=== PATIENT | female | born 1945 | race Caucasian/White ===

== ENCOUNTER → 2018-06-30 | Outpatient (CLI) | payer OTHER ==
[2018-06-30 17:12] LABS: AMORPHOUS SEDIMENT MODERATE (NEGATIVE); APPEARANCE, URINE HAZY (CLEAR); BACTERIA, URINE AUTO NEGATIVE (NEGATIVE); BILIRUBIN, URINE AUTO NEGATIVE (NEGATIVE); BLOOD, URINE BLOOD NEGATIVE (NEGATIVE); COLOR, URINE YELLOW (YELLOW); GLUCOSE, URINE (UA) AUTO NEGATIVE (NEGATIVE); HEMATOCRIT 35.6 % (36.0-47.0); HEMOGLOBIN 11.2 g/dl (12.0-15.5); KETONE, URINE AUTO NEGATIVE (NEGATIVE); LEUKOCYTE ESTERASE, URINE AUTO NEGATIVE (NEGATIVE); MEAN CORPUSCULAR HGB CONC 31.5 g/dl (32.0-36.5); NITRITE, URINE AUTO NEGATIVE (NEGATIVE); PLATELET COUNT, AUTOMATED 280 10^3/uL (150-450); PROTEIN, URINE AUTO 2+ mg/dL (NEGATIVE); RBC, URINE AUTO 3 /HPF (0-3); RED CELL DISTRIBUTION WIDTH 13.8 % (11.5-14.5); SPECIFIC GRAVITY URINE AUTO 1.013 (1.002-1.035); SQUAMOUS EPITHELIAL CELL UR AU 1 /HPF (0-6); UROBILINOGEN, URINE AUTO 0.2 mg/dL (0.0-2.0); WBC, URINE AUTO 1 /HPF (0-3); WHITE BLOOD COUNT 11.9 10^3/uL (4.0-10.0)
[2018-06-30 17:22] LABS: ANION GAP 6 MEQ/L (8-16); BLOOD UREA NITROGEN 31 MG/DL (7-18); CARBON DIOXIDE LEVEL 32 MEQ/L (21-32); CHLORIDE LEVEL 102 MEQ/L (98-107); CREATININE FOR GFR 1.11 MG/DL (0.55-1.30); GLOMERULAR FILTRATION RATE 51.3 (>39); GLUCOSE, FASTING 108 MG/DL (70-100); POTASSIUM SERUM 4.7 MEQ/L (3.5-5.1); SODIUM LEVEL 140 MEQ/L (136-145)
[2018-06-30 17:29] LABS: INR 0.95; PROTHROMBIN TIME 12.8 SECONDS (12.1-14.4)
[2018-06-30 17:30] LABS: PARTIAL THROMBOPLASTIN TIME 27.7 SECONDS (25.4-37.6)
== END ==
LOC: M SMT 14:59
DX: Z01.818 Encounter for other preprocedural examination (principal); D49.511 Neoplasm of unspecified behavior of right kidney; Z79.01 Long term (current) use of anticoagulants; Z79.899 Other long term (current) drug therapy; E11.9 Type 2 diabetes mellitus without complications
CPT/HCPCS: 80048

== ENCOUNTER 2018-07-18 06:58 | Inpatient (IN) | payer OTHER ==
[2018-07-18] MEDS: LIDOCAINE 1% SDV 5 ML VIAL SQ (07:00)
[2018-07-18] MEDS: LR 1,000 ML IV ×2 (07:55→13:15)
[2018-07-18 07:58] LABS: BEDSIDE GLUCOSE 155 MG/DL (83-110)
[2018-07-18] MEDS ORDERED: ROCURONIUM BROMIDE 50 MG/5 ML VIAL As Ordered ×3 (08:21→11:14)
[2018-07-18] MEDS ORDERED: PROPOFOL 200 MG/20 ML VIAL As Ordered (08:21)
[2018-07-18] MEDS ORDERED: MIDAZOLAM INJ 2 MG/2 ML VIAL (J2250) As Ordered (08:21)
[2018-07-18] MEDS ORDERED: fentaNYL 250 MCG/5 ML INJECTION (J3010) As Ordered (08:21)
[2018-07-18] MEDS ORDERED: LIDOCAINE 2% INJ 100 MG/5 ML SDV (FOR ANES.) As Ordered (08:21)
[2018-07-18] MEDS ORDERED: SEVOFLURANE INHAL SOLN 250 ML BTL As Ordered (08:58)
[2018-07-18] MEDS ORDERED: ePHEDrine SULFATE 25 MG/5 ML(5MG/ML) SYRINGE As Ordered (09:16)
[2018-07-18] MEDS ORDERED: PHENYLephrine HCL 500 MCG/5 ML (100MCG/ML) SYRINGE (J2370) As Ordered (09:16)
[2018-07-18] MEDS ORDERED: HYDROmorphone HCL 2 MG/ML 1ML VIAL (J1170) As Ordered (10:13)
[2018-07-18] MEDS ORDERED: ONDANSETRON 4MG/2ML VIAL (J2405) As Ordered (10:15)
[2018-07-18] MEDS ORDERED: dexameTHASONE 4 MG/ML 1ML VIAL (J1100) As Ordered (10:15)
[2018-07-18] MEDS ORDERED: LABETALOL HCL 100 MG/20 ML VIAL As Ordered (11:44)
[2018-07-18] MEDS ORDERED: SUGAMMADEX SODIUM 500 MG/5 ML VIAL (BRIDION) As Ordered (11:48)
[2018-07-18 12:58] LABS: BEDSIDE GLUCOSE 252 MG/DL (83-110)
[2018-07-18 13:09] LABS: HEMATOCRIT 34.4 % (36.0-47.0); HEMOGLOBIN 11.2 g/dl (12.0-15.5); MEAN CORPUSCULAR HEMOGLOBIN 28.5 pg (27.0-33.0); MEAN CORPUSCULAR HGB CONC 32.6 g/dl (32.0-36.5); MEAN CORPUSCULAR VOLUME 87.5 fl (80.0-96.0); PLATELET COUNT, AUTOMATED 234 10^3/uL (150-450); RED BLOOD COUNT 3.93 10^6/uL (4.00-5.40); WHITE BLOOD COUNT 11.2 10^3/uL (4.0-10.0)
[2018-07-18] MEDS ORDERED: MEPERIDINE INJ 25 MG/ML VIAL (J2175) IV (13:15)
[2018-07-18] MEDS ORDERED: ONDANSETRON 4MG/2ML VIAL (J2405) IV ×2 (13:15→13:30)
[2018-07-18] MEDS ORDERED: METOCLOPRAMIDE INJ 10MG/2ML VIAL (J2765) IV (13:15)
[2018-07-18] MEDS ORDERED: HumaLOG INSULIN (NovoLOG) PER UNIT As Ordered (13:22)
[2018-07-18] MEDS: HumaLOG INSULIN (NovoLOG) PER UNIT SC ×3 (13:24→20:55)
[2018-07-18] MEDS ORDERED: MORPHINE 4 MG/ML 1ML VIAL/SYRINGE (J2270) IV (13:30)
[2018-07-18 13:31] LABS: ANION GAP 9 MEQ/L (8-16); BLOOD UREA NITROGEN 25 MG/DL (7-18); CARBON DIOXIDE LEVEL 26 MEQ/L (21-32); CHLORIDE LEVEL 105 MEQ/L (98-107); CREATININE FOR GFR 1.31 MG/DL (0.55-1.30); GLOMERULAR FILTRATION RATE 42.4 (>39); GLUCOSE, FASTING 250 MG/DL (70-100); POTASSIUM SERUM 3.8 MEQ/L (3.5-5.1); SODIUM LEVEL 140 MEQ/L (136-145)
[2018-07-18] MEDS: PERCOCET 5MG/325MG TAB PO (13:35)
[2018-07-18] MEDS: fentaNYL 100 MCG/2 ML INJECTION (J3010) IV ×2 (13:40→13:45)
[2018-07-18] MEDS: LevoFLOXacin IV 500 MG in APPROPRIATE DILUENT 1 EA IV (15:06)
[2018-07-18] MEDS: KCL 20MEQ in NS 1000ML 1,000 ML IV (15:06)
[2018-07-18] MEDS: ACETAMINOPHEN 650MG ER TAB (TYLENOL ARTHRITIS) PO ×2 (15:50→21:41)
[2018-07-18] MEDS ORDERED: GLUCOSE 4 GM CHEW TABLET PO (16:45)
[2018-07-18] MEDS ORDERED: DEXTROSE 50% 50 ML SYRINGE IV (16:45)
[2018-07-18] MEDS ORDERED: GLUCAGON FOR INJ 1 MG VIAL (J1610) SC (16:45)
[2018-07-18] MEDS: FIBER-CON 625 MG TAB PO (18:00)
[2018-07-18 18:17] LABS: BEDSIDE GLUCOSE 214 MG/DL (83-110)
[2018-07-18] MEDS: FUROSEMIDE 40 MG TAB PO (18:18)
[2018-07-18 20:04] LABS: BEDSIDE GLUCOSE 249 MG/DL (83-110)
[2018-07-18] MEDS: ATORVASTATIN 20 MG TAB PO (20:55)
[2018-07-18] MEDS: PANTOPRAZOLE 40MG INJ (PROTONIX) (C9113) IV (20:55)
[2018-07-18] MEDS: GABAPENTIN 400 MG CAP PO (20:55)
[2018-07-19] MEDS: KCL 20MEQ in NS 1000ML 1,000 ML IV ×2 (00:42→09:45)
[2018-07-19] MEDS: oxyCODONE 5MG TAB PO ×2 (00:46→09:41)
[2018-07-19] MEDS: LEVOTHYROXINE 75MCG TABLET (0.075MG) PO (06:10)
[2018-07-19] MEDS: ACETAMINOPHEN 650MG ER TAB (TYLENOL ARTHRITIS) PO ×3 (06:10→21:28)
[2018-07-19 06:39] LABS: HEMATOCRIT 29.7 % (36.0-47.0); HEMOGLOBIN 9.4 g/dl (12.0-15.5); MEAN CORPUSCULAR HEMOGLOBIN 27.7 pg (27.0-33.0); MEAN CORPUSCULAR HGB CONC 31.6 g/dl (32.0-36.5); MEAN CORPUSCULAR VOLUME 87.6 fl (80.0-96.0); PLATELET COUNT, AUTOMATED 222 10^3/uL (150-450); RED BLOOD COUNT 3.39 10^6/uL (4.00-5.40); RED CELL DISTRIBUTION WIDTH 14.2 % (11.5-14.5)
[2018-07-19 07:00] LABS: ANION GAP 6 MEQ/L (8-16); BLOOD UREA NITROGEN 21 MG/DL (7-18); CARBON DIOXIDE LEVEL 28 MEQ/L (21-32); CHLORIDE LEVEL 106 MEQ/L (98-107); GLOMERULAR FILTRATION RATE 42.7 (>39); GLUCOSE, FASTING 139 MG/DL (70-100); POTASSIUM SERUM 3.9 MEQ/L (3.5-5.1); SODIUM LEVEL 140 MEQ/L (136-145)
[2018-07-19] MEDS: FLUoxetine 20 MG CAP PO (09:33)
[2018-07-19] MEDS: FIBER-CON 625 MG TAB PO (09:33)
[2018-07-19] MEDS: GABAPENTIN 400 MG CAP PO ×3 (09:33→21:28)
[2018-07-19] MEDS: HumaLOG INSULIN (NovoLOG) PER UNIT SC ×4 (09:33→21:00)
[2018-07-19] MEDS: FUROSEMIDE 40 MG TAB PO ×2 (09:34→17:53)
[2018-07-19] MEDS: LOSARTAN 50 MG TAB PO (09:40)
[2018-07-19 11:26] LABS: BEDSIDE GLUCOSE 221 MG/DL (83-110)
[2018-07-19] MEDS: LevoFLOXacin IV 500 MG in APPROPRIATE DILUENT 1 EA IV (15:07)
[2018-07-19] MEDS: PANTOPRAZOLE 40MG INJ (PROTONIX) (C9113) IV (21:28)
[2018-07-19] MEDS: ATORVASTATIN 20 MG TAB PO (21:28)
[2018-07-20] MEDS: LEVOTHYROXINE 75MCG TABLET (0.075MG) PO (05:59)
[2018-07-20] MEDS: ACETAMINOPHEN 650MG ER TAB (TYLENOL ARTHRITIS) PO ×2 (05:59→13:27)
[2018-07-20 06:40] LABS: ANION GAP 22 MEQ/L (8-16); BLOOD UREA NITROGEN 20 MG/DL (7-18); CARBON DIOXIDE LEVEL 12 MEQ/L (21-32); CHLORIDE LEVEL 110 MEQ/L (98-107); CREATININE FOR GFR 1.65 MG/DL (0.55-1.30); GLOMERULAR FILTRATION RATE 32.5 (>39); GLUCOSE, FASTING 126 MG/DL (70-100); POTASSIUM SERUM 4.5 MEQ/L (3.5-5.1); SODIUM LEVEL 144 MEQ/L (136-145)
[2018-07-20 06:45] LABS: HEMATOCRIT 28.4 % (36.0-47.0); MEAN CORPUSCULAR HGB CONC 31.7 g/dl (32.0-36.5); MEAN CORPUSCULAR VOLUME 88.2 fl (80.0-96.0); PLATELET COUNT, AUTOMATED 194 10^3/uL (150-450); RED BLOOD COUNT 3.22 10^6/uL (4.00-5.40); RED CELL DISTRIBUTION WIDTH 14.3 % (11.5-14.5); WHITE BLOOD COUNT 11.3 10^3/uL (4.0-10.0)
[2018-07-20] MEDS: HumaLOG INSULIN (NovoLOG) PER UNIT SC ×2 (08:55→13:26)
[2018-07-20] MEDS: FIBER-CON 625 MG TAB PO (08:55)
[2018-07-20] MEDS: GABAPENTIN 400 MG CAP PO (08:56)
[2018-07-20] MEDS: FUROSEMIDE 40 MG TAB PO (08:56)
[2018-07-20] MEDS: FLUoxetine 20 MG CAP PO (08:56)
[2018-07-20] MEDS: LOSARTAN 50 MG TAB PO (08:58)
[2018-07-20 09:33] LABS: CREATININE BF 1.6 MG/DL (NOT ESTABLISHED); SOURCE, BODY FLUID CREATININE OTHER
[2018-07-21 14:26] LABS: BEDSIDE GLUCOSE 188 MG/DL (83-110)
[2018-07-21 14:26] LABS: BEDSIDE GLUCOSE 181 MG/DL (83-110)
[2018-07-21 14:26] LABS: BEDSIDE GLUCOSE 214 MG/DL (83-110)
== END 2018-07-20 14:01 | disposition home or self-care (01) | DRG 658 ==
LOC: M OR 06:58 → M MSPAV 14:39
PROVIDERS: Urology
PROC: 0TB04ZZ Excision of Right Kidney, Percutaneous Endoscopic Approach (ICD-10-PCS; principal; 2018-07-18 08:30)
PROC: 8E0W4CZ Robotic Assisted Procedure of Trunk Region, Percutaneous Endoscopic Approach (ICD-10-PCS; 2018-07-18 08:30)
DX: C64.1 Malignant neoplasm of right kidney, except renal pelvis (principal); I11.0 Hypertensive heart disease with heart failure; E11.9 Type 2 diabetes mellitus without complications; I50.9 Heart failure, unspecified; M10.9 Gout, unspecified

== ENCOUNTER 2023-08-15 07:19 | Day surgery (SDC) | payer MEDICARE ==
[~2023-08-15] VITALS: Ht 157.5 cm; Wt 84.4 kg
[~2023-08-15 07:19] MED LIST: ACE65ERTAB PO; ACET650T61 PO; AMLO2.5T3 PO; ANOR1AER PO; ASPI81TA86 PO; ATEN25TA PO; ATOR1TAB21 PO; BEVE1AER INH; DIPH-435 PO; DULO1CAP6 PO; ECOT81TA5 PO; FEBU40TA4 PO; FENO160T10 PO; FIBE500T4 PO; FIBE625T PO; FISH10005 PO; GABA600T4 PO; GABA800T4 PO; INSU100I48; INSU100I6 SC; INSUHUMDS SC; LANS15CA PO; LASI40TA9 PO; LEVA250T13 PO; LEVO75TA4 PO; LEVO88TA3 PO; LOSA100T46 PO; LOSA50TA28 PO; MIRA3350 PO; MM S100C PO; NS 1,000 ML IV ONE; OMEP-173 PO; OXYC7.5T3 PO; POTA-149 PO; POTA-298 PO; PROZ40CA PO; ROSU40TA4 PO; STOOTAB PO; TESS100C PO; TRAM50TA2 PO; TRUL10IN SC; TYLE500T78 PO; VITA-183 PO; [UNRECOGNIZED DRUG - CODE] PO; [UNRECOGNIZED DRUG - CODE] PO; fentaNYL 100 MCG/2 ML INJECTION As Ordered ONE; propofoL 200 MG/20 ML VIAL As Ordered ONE
[2023-08-15] MEDS ORDERED: propofoL 200 MG/20 ML VIAL As Ordered ONE (09:08)
[2023-08-15 09:43] VITALS: BP 120/59; O2SAT 94
== END 2023-08-15 09:48 | disposition home or self-care (01) ==
LOC: M OPP 07:19
PROVIDERS: ATTEND Internal Medicine Gastroenterology
DX: D12.6 Benign neoplasm of colon, unspecified (principal); K64.0 First degree hemorrhoids; K57.30 Diverticulosis of large intestine without perforation or abscess without bleeding; Z80.0 Family history of malignant neoplasm of digestive organs; D50.9 Iron deficiency anemia, unspecified; K31.89 Other diseases of stomach and duodenum; K29.70 Gastritis, unspecified, without bleeding; E11.9 Type 2 diabetes mellitus without complications; G47.30 Sleep apnea, unspecified; Z99.89 Dependence on other enabling machines and devices; I25.10 Atherosclerotic heart disease of native coronary artery without angina pectoris; I25.2 Old myocardial infarction; I50.9 Heart failure, unspecified; I34.9 Nonrheumatic mitral valve disorder, unspecified; Z85.520 Personal history of malignant carcinoid tumor of kidney; Z79.02 Long term (current) use of antithrombotics/antiplatelets; Z79.891 Long term (current) use of opiate analgesic; Z79.899 Other long term (current) drug therapy; Z88.1 Allergy status to other antibiotic agents; Z88.2 Allergy status to sulfonamides; Z88.8 Allergy status to other drugs, medicaments and biological substances; Z91.048 Other nonmedicinal substance allergy status

== ENCOUNTER 2024-03-01 16:09 | Emergency (ER) | payer OTHER, MEDICARE ==
[~2024-03-01] VITALS: Ht 160 cm; Wt 90.0 kg
[~2024-03-01 16:09] MED LIST changes: -NS 1,000 ML IV ONE; -ROSU40TA4 PO; +ROSU40TA63 PO; -fentaNYL 100 MCG/2 ML INJECTION As Ordered ONE; -propofoL 200 MG/20 ML VIAL As Ordered ONE
[2024-03-01 17:27] LABS: BASO # 0.1 10^3/uL (0.0-0.2); BASO % 0.5 % (0.0-1.0); EOS # 0.3 10^3/uL (0.0-0.5); HEMATOCRIT 24.4 % (36.0-47.0); HEMOGLOBIN 7.6 g/dl (12.0-15.5); LYMPH # 2.5 10^3/uL (1.5-5.0); LYMPH % 25.5 % (24.0-44.0); MEAN CORPUSCULAR HEMOGLOBIN 26.7 pg (27.0-33.0); MEAN CORPUSCULAR HGB CONC 31.1 g/dl (32.0-36.5); MEAN CORPUSCULAR VOLUME 85.6 fl (80.0-96.0); MONO # 0.6 10^3/uL (0.0-0.8); MONO % 5.8 % (2.0-8.0); NEUTROPHILS # 6.1 10^3/uL (1.5-8.5); PLATELET COUNT, AUTOMATED 288 10^3/uL (150-450); RED BLOOD COUNT 2.85 10^6/uL (4.00-5.40); WHITE BLOOD COUNT 9.6 10^3/uL (4.0-10.0)
[2024-03-01 17:47] LABS: CALCIUM LEVEL 9.6 MG/DL (8.3-10.6); CREATININE FOR GFR 2.88 MG/DL (0.55-1.30); GLOMERULAR FILTRATION RATE 16.8 (>39)
[2024-03-01] MEDS: NS 1,000 ML IV ONE (21:14)
[2024-03-01] MEDS: HumuLIN R (REGULAR) INSULIN (NovoLIN R) **100U/ML** PER UNIT SC STA (21:14)
[2024-03-01 21:27] LABS: THYROID STIMULATING HORMONE 1.383 uIU/ML (0.55-4.78)
[2024-03-01 23:31] VITALS: BP 157/78
[2024-03-01] MEDS: LOSARTAN 50MG TABLET PO ONE (23:31)
[2024-03-02 00:05] LABS: CALCIUM LEVEL 9.2 MG/DL (8.3-10.6); CREATININE FOR GFR 2.65 MG/DL (0.55-1.30); GLOMERULAR FILTRATION RATE 18.5 (>39); POTASSIUM SERUM 5.2 MMOL/L (3.5-5.1)
[2024-03-02] MEDS: LEVEMIR (INSULIN DETEMIR) 1 UNITS/0.01ML SC ONE (01:31)
[2024-03-02 01:44] VITALS: BP 172/85; TEMP 98.2; O2SAT 98
== END 2024-03-02 01:47 | disposition home or self-care (01) ==
LOC: M ED 16:09
DX: E87.5 Hyperkalemia (principal); D64.9 Anemia, unspecified; K21.9 Gastro-esophageal reflux disease without esophagitis; E11.9 Type 2 diabetes mellitus without complications; I10 Essential (primary) hypertension; E78.5 Hyperlipidemia, unspecified; F32.A Depression, unspecified; Z88.2 Allergy status to sulfonamides; Z88.8 Allergy status to other drugs, medicaments and biological substances; Z91.040 Latex allergy status; Z79.899 Other long term (current) drug therapy; Z79.1 Long term (current) use of non-steroidal anti-inflammatories (NSAID); Z79.4 Long term (current) use of insulin
CPT/HCPCS: 70450; 71045; 80048; 81001; 84443; 85025; 93005; 96372; 99285; J1815

== ENCOUNTER → 2024-03-16 | Outpatient (REF) | payer OTHER, MEDICARE ==
[2024-03-16 19:56] LABS: PERCENT SATURATION 4.3 % (13.2-45.0)
== END ==
LOC: M LAB REF 17:09
PROVIDERS: ATTEND Internal Medicine Nephrology
DX: D50.9 Iron deficiency anemia, unspecified (principal)

== ENCOUNTER 2024-04-04 11:35 | Outpatient (CLI) | payer MEDICARE ==
[~2024-04-04] VITALS: Ht 157.5 cm; Wt 86.3 kg
[2024-04-04] MEDS: NS 1,000 ML IV SCH (06:00)
[~2024-04-04 11:35] MED LIST changes: +ALBUTEROL SULFATE 2.5MG/0.5ML INH NEB SOLN INH PRN; +EPINEPHrine INJ 1 MG/ML 1ML AMP IM PRN; +diphenhydrAMINE 50MG/ML VIAL IV PRN; +methylPREDNISolone 125MG 2ML VIAL IV PRN
[2024-04-04 11:45] VITALS: BP 139/63; O2SAT 97
[2024-04-04] MEDS: IRON SUCROSE 25 MG in NS 23.75 ML IV ONE (12:56)
[2024-04-04] MEDS: IRON SUCROSE 375 MG in NS 250 ML IV ONE (13:48)
[2024-04-04 16:10] VITALS: BP 124/58; O2SAT 92
== END 2024-04-04 16:10 | disposition home or self-care (01) ==
LOC: M INFU 11:35
PROVIDERS: ATTEND Internal Medicine Nephrology
DX: D50.9 Iron deficiency anemia, unspecified (principal); Z88.2 Allergy status to sulfonamides; Z88.1 Allergy status to other antibiotic agents; Z88.8 Allergy status to other drugs, medicaments and biological substances; Z91.040 Latex allergy status
CPT/HCPCS: 96365; 96366; J1756

== ENCOUNTER → 2024-04-11 | Outpatient (CLI) | payer MEDICARE ==
[~2024-04-11] MED LIST changes: -ALBUTEROL SULFATE 2.5MG/0.5ML INH NEB SOLN INH PRN; -EPINEPHrine INJ 1 MG/ML 1ML AMP IM PRN; -diphenhydrAMINE 50MG/ML VIAL IV PRN; -methylPREDNISolone 125MG 2ML VIAL IV PRN
== END ==
LOC: M RAD 13:47
PROVIDERS: ATTEND Internal Medicine Nephrology
DX: N18.32 Chronic kidney disease, stage 3b (principal)

== ENCOUNTER 2024-04-18 11:00 | Outpatient (CLI) | payer MEDICARE ==
[~2024-04-18] VITALS: Ht 157.5 cm; Wt 87.2 kg
[~2024-04-18 11:00] MED LIST changes: +ALBUTEROL SULFATE 2.5MG/0.5ML INH NEB SOLN INH PRN; +EPINEPHrine INJ 1 MG/ML 1ML AMP IM PRN; +NS 1,000 ML IV SCH; +diphenhydrAMINE 50MG/ML VIAL IV PRN; +methylPREDNISolone 125MG 2ML VIAL IV PRN
[2024-04-18 11:10] VITALS: BP 152/82; O2SAT 97
[2024-04-18] MEDS: IRON SUCROSE 400 MG in NS 250 ML OVER 2.5 HRS IV ONE (11:37)
[2024-04-18 12:45] VITALS: BP 149/86; O2SAT 96
[2024-04-18 13:45] VITALS: BP 140/88; O2SAT 97
[2024-04-18 14:15] VITALS: BP 148/80; O2SAT 96
== END 2024-04-18 14:35 ==
LOC: M INFU 11:00
PROVIDERS: ATTEND Internal Medicine Nephrology
DX: D50.9 Iron deficiency anemia, unspecified (principal); Z88.0 Allergy status to penicillin; Z88.2 Allergy status to sulfonamides; Z88.1 Allergy status to other antibiotic agents; Z88.8 Allergy status to other drugs, medicaments and biological substances; Z91.040 Latex allergy status
CPT/HCPCS: 96365; 96366; J1756

== ENCOUNTER → 2024-04-24 | Outpatient (REF) | payer MEDICARE ==
[~2024-04-24] MED LIST changes: -ALBUTEROL SULFATE 2.5MG/0.5ML INH NEB SOLN INH PRN; -EPINEPHrine INJ 1 MG/ML 1ML AMP IM PRN; -NS 1,000 ML IV SCH; -diphenhydrAMINE 50MG/ML VIAL IV PRN; -methylPREDNISolone 125MG 2ML VIAL IV PRN
[2024-04-24 19:22] LABS: PERCENT SATURATION 11.2 % (13.2-45.0)
== END ==
LOC: M LAB REF 17:34
PROVIDERS: ATTEND Internal Medicine Nephrology
DX: D50.9 Iron deficiency anemia, unspecified (principal)

== ENCOUNTER → 2024-06-13 | Outpatient (REF) | payer MEDICARE, OTHER ==
[~2024-06-13] MED LIST changes: +GABA-1490 PO; +GABA-1635 PO; -GABA600T4 PO; -GABA800T4 PO; -ROSU40TA63 PO; +ROSU40TA81 PO
[2024-06-13 12:29] LABS: HEMATOCRIT 30.6 % (36.0-47.0); HEMOGLOBIN 9.6 g/dl (12.0-15.5); MEAN CORPUSCULAR HEMOGLOBIN 26.4 pg (27.0-33.0); MEAN CORPUSCULAR HGB CONC 31.4 g/dl (32.0-36.5); MEAN CORPUSCULAR VOLUME 84.1 fl (80.0-96.0); PLATELET COUNT, AUTOMATED 319 10^3/uL (150-450); RED BLOOD COUNT 3.64 10^6/uL (4.00-5.40); WHITE BLOOD COUNT 9.7 10^3/uL (4.0-10.0)
[2024-06-13 13:04] LABS: CALCIUM LEVEL 10.6 MG/DL (8.3-10.6); CREATININE FOR GFR 2.5 MG/DL (0.55-1.30); GLOMERULAR FILTRATION RATE 19.8 (>39); POTASSIUM SERUM 4.3 MMOL/L (3.5-5.1)
== END ==
LOC: SKLAB4 10:42
PROVIDERS: ATTEND Internal Medicine
DX: N18.4 Chronic kidney disease, stage 4 (severe) (principal)

== ENCOUNTER → 2024-06-28 | Outpatient (REF) | payer MEDICARE, OTHER ==
[2024-06-28 10:30] LABS: URIC ACID 4.8 MG/DL (3.1-7.8)
[2024-06-28 10:34] LABS: CHOLESTEROL LEVEL 230 MG/DL (<200); CHOLESTEROL RISK RATIO 5.89 (<5); PHOSPHORUS LEVEL 4.9 MG/DL (2.4-5.1); TRIGLYCERIDES LEVEL 454 MG/DL (<150)
[2024-06-28 10:35] LABS: TOTAL 25(OH) VITAMIN D 11.4 NG/ML (20.0-100.0)
[2024-06-28 10:54] LABS: HEMOGLOBIN A1c 9.4 % (4.0-6.0)
== END ==
LOC: SKLAB4 07:00
PROVIDERS: ATTEND Internal Medicine
DX: E78.49 Other hyperlipidemia (principal); Z79.899 Other long term (current) drug therapy

== ENCOUNTER → 2024-07-10 | Outpatient (REF) | payer MEDICARE, OTHER ==
[2024-07-10 09:43] LABS: BACTERIA, URINE AUTO 1+ (NEGATIVE); MUCUS, URINE SMALL (NEGATIVE); RBC, URINE AUTO 3 /HPF (0-3); SQUAMOUS EPITHELIAL CELL UR AU 4 /HPF (0-6); WBC, URINE AUTO 6 /HPF (0-3)
[2024-07-10 10:32] LABS: APPEARANCE, URINE HAZY (CLEAR); BILIRUBIN, URINE AUTO NEGATIVE (NEGATIVE); BLOOD, URINE BLOOD NEGATIVE (NEGATIVE); COLOR, URINE YELLOW (YELLOW); GLUCOSE, URINE (UA) AUTO 1+ mg/dL (NEGATIVE); KETONE, URINE AUTO NEGATIVE (NEGATIVE); LEUKOCYTE ESTERASE, URINE AUTO NEGATIVE (NEGATIVE); NITRITE, URINE AUTO NEGATIVE (NEGATIVE); PROTEIN, URINE AUTO 3+ mg/dL (NEGATIVE); SPECIFIC GRAVITY URINE AUTO 1.011 (1.002-1.035); UROBILINOGEN, URINE AUTO 0.2 mg/dL (0.0-2.0)
[2024-07-10 12:11] LABS: HEMATOCRIT 30.7 % (36.0-47.0); HEMOGLOBIN 9.5 g/dl (12.0-15.5); MEAN CORPUSCULAR HEMOGLOBIN 26.5 pg (27.0-33.0); MEAN CORPUSCULAR HGB CONC 30.9 g/dl (32.0-36.5); MEAN CORPUSCULAR VOLUME 85.8 fl (80.0-96.0); PLATELET COUNT, AUTOMATED 354 10^3/uL (150-450); RED BLOOD COUNT 3.58 10^6/uL (4.00-5.40); WHITE BLOOD COUNT 9.1 10^3/uL (4.0-10.0)
[2024-07-10 12:43] LABS: ALBUMIN 3.3 G/DL (3.2-5.2); CALCIUM LEVEL 10.5 MG/DL (8.3-10.6); CREATININE FOR GFR 2.2 MG/DL (0.55-1.30); GLOMERULAR FILTRATION RATE 22.9 (>39); PHOSPHORUS LEVEL 5.3 MG/DL (2.4-5.1); POTASSIUM SERUM 4.7 MMOL/L (3.5-5.1); PTH INTACT 276.6 PG/ML (18.5-88.0)
== END ==
LOC: SKLAB4 08:14
PROVIDERS: ATTEND Internal Medicine
DX: N18.4 Chronic kidney disease, stage 4 (severe) (principal)

== ENCOUNTER → 2024-08-02 | Outpatient (REF) | payer MEDICARE, OTHER ==
[2024-08-02 14:45] LABS: BASO % 0.4 % (0.0-1.0); EOS # 0.2 10^3/uL (0.0-0.5); EOS % 2.5 % (0.0-3.0); HEMATOCRIT 29.4 % (36.0-47.0); HEMOGLOBIN 9.2 g/dl (12.0-15.5); LYMPH # 3.3 10^3/uL (1.5-5.0); MEAN CORPUSCULAR HGB CONC 31.3 g/dl (32.0-36.5); MEAN CORPUSCULAR VOLUME 86.2 fl (80.0-96.0); MONO # 0.6 10^3/uL (0.0-0.8); MONO % 5.7 % (2.0-8.0); NEUTROPHILS # 5.4 10^3/uL (1.5-8.5); NEUTROPHILS % 56.1 % (36.0-66.0); PLATELET COUNT, AUTOMATED 318 10^3/uL (150-450); RED BLOOD COUNT 3.41 10^6/uL (4.00-5.40); WHITE BLOOD COUNT 9.6 10^3/uL (4.0-10.0)
[2024-08-02 15:09] LABS: ALBUMIN 3.1 G/DL (3.2-5.2); BILIRUBIN,TOTAL 0.2 MG/DL (0.3-1.2); CALCIUM LEVEL 9.5 MG/DL (8.3-10.6); CREATININE FOR GFR 2.2 MG/DL (0.55-1.30); GLOMERULAR FILTRATION RATE 22.9 (>39); POTASSIUM SERUM 4.8 MMOL/L (3.5-5.1)
== END ==
LOC: SKLAB4 12:14
PROVIDERS: ATTEND Internal Medicine
DX: R07.9 Chest pain, unspecified (principal); I50.9 Heart failure, unspecified; R30.0 Dysuria; R91.8 Other nonspecific abnormal finding of lung field

== ENCOUNTER → 2024-08-02 | Outpatient (REF) | payer MEDICARE, OTHER | LOC: SKLAB4 11:29 | PROVIDERS: ATTEND Internal Medicine | DX: R42 Dizziness and giddiness (principal); I44.0 Atrioventricular block, first degree ==

== ENCOUNTER → 2024-08-03 | Outpatient (CLI) | payer MEDICARE | LOC: M EKG 13:57 | PROVIDERS: ATTEND Nurse Practitioner Family | DX: R42 Dizziness and giddiness (principal); I44.0 Atrioventricular block, first degree ==

== ENCOUNTER → 2024-08-09 | Outpatient (CLI) | payer MEDICARE | LOC: M CARPUL 13:20 | PROVIDERS: ATTEND Nurse Practitioner Family | DX: E07.9 Disorder of thyroid, unspecified (principal) ==

== ENCOUNTER → 2024-09-20 | Outpatient (CLI) | payer MEDICARE | LOC: M RAD 14:28 | PROVIDERS: ATTEND Nurse Practitioner Family | DX: M25.512 Pain in left shoulder (principal) ==

== ENCOUNTER → 2024-09-20 | Outpatient (REF) | payer MEDICARE ==
[2024-09-20 13:33] LABS: BASO % 0.4 % (0.0-1.0); EOS % 0.4 % (0.0-3.0); HEMATOCRIT 28.6 % (36.0-47.0); HEMOGLOBIN 8.9 g/dl (12.0-15.5); LYMPH # 1.5 10^3/uL (1.5-5.0); LYMPH % 14.8 % (24.0-44.0); MEAN CORPUSCULAR HEMOGLOBIN 26.5 pg (27.0-33.0); MEAN CORPUSCULAR HGB CONC 31.1 g/dl (32.0-36.5); MEAN CORPUSCULAR VOLUME 85.1 fl (80.0-96.0); MONO # 0.2 10^3/uL (0.0-0.8); MONO % 2.4 % (2.0-8.0); NEUTROPHILS # 8.1 10^3/uL (1.5-8.5); PLATELET COUNT, AUTOMATED 287 10^3/uL (150-450); RED BLOOD COUNT 3.36 10^6/uL (4.00-5.40)
[2024-09-20 13:44] LABS: ERYTHROCYTE SEDIMENTATION RATE 54 mm/hr (0-30)
[2024-09-20 14:01] LABS: URIC ACID 5.5 MG/DL (3.1-7.8)
[2024-09-20 14:05] LABS: ALBUMIN 3.3 G/DL (3.2-5.2); BILIRUBIN,TOTAL 0.2 MG/DL (0.3-1.2); C REACTIVE PROTEIN QUANTITATIV 0.74 MG/DL (<1.0); CALCIUM LEVEL 9.6 MG/DL (8.3-10.6); CREATININE FOR GFR 2.2 MG/DL (0.55-1.30); GLOMERULAR FILTRATION RATE 22.9 (>39); POTASSIUM SERUM 5.5 MMOL/L (3.5-5.1); TOTAL PROTEIN 7.1 G/DL (5.7-8.2)
== END ==
LOC: SKLAB4 12:49
PROVIDERS: ATTEND Internal Medicine
DX: N18.4 Chronic kidney disease, stage 4 (severe) (principal); M25.512 Pain in left shoulder

== ENCOUNTER → 2024-09-24 | Outpatient (REF) | payer MEDICARE, MEDICAID ==
[2024-09-24 08:10] LABS: CALCIUM LEVEL 9.4 MG/DL (8.3-10.6); CREATININE FOR GFR 2.07 MG/DL (0.55-1.30); GLOMERULAR FILTRATION RATE 24.6 (>39); POTASSIUM SERUM 4.3 MMOL/L (3.5-5.1)
== END ==
LOC: SKLAB4 07:00
PROVIDERS: ATTEND Internal Medicine
DX: E87.5 Hyperkalemia (principal)

== ENCOUNTER → 2024-10-02 | Outpatient (REF) | payer MEDICARE, MEDICAID ==
[2024-10-02 08:48] LABS: HEMATOCRIT 25.3 % (36.0-47.0); HEMOGLOBIN 7.9 g/dl (12.0-15.5); MEAN CORPUSCULAR HEMOGLOBIN 26.8 pg (27.0-33.0); MEAN CORPUSCULAR HGB CONC 31.2 g/dl (32.0-36.5); MEAN CORPUSCULAR VOLUME 85.8 fl (80.0-96.0); PLATELET COUNT, AUTOMATED 278 10^3/uL (150-450); RED BLOOD COUNT 2.95 10^6/uL (4.00-5.40); WHITE BLOOD COUNT 10.2 10^3/uL (4.0-10.0)
[2024-10-02 09:02] LABS: HEMOGLOBIN A1c 10.8 % (4.0-6.0)
[2024-10-02 09:11] LABS: ALBUMIN 2.9 G/DL (3.2-5.2); BILIRUBIN,TOTAL 0.2 MG/DL (0.3-1.2); CALCIUM LEVEL 9.3 MG/DL (8.3-10.6); CREATININE FOR GFR 2.15 MG/DL (0.55-1.30); GLOMERULAR FILTRATION RATE 23.5 (>39); POTASSIUM SERUM 4.3 MMOL/L (3.5-5.1); TOTAL PROTEIN 6.2 G/DL (5.7-8.2)
== END ==
LOC: SKLAB4 07:00
PROVIDERS: ATTEND Internal Medicine
DX: N18.4 Chronic kidney disease, stage 4 (severe) (principal); Z79.899 Other long term (current) drug therapy

== ENCOUNTER → 2024-10-08 | Outpatient (REF) | payer MEDICARE, MEDICAID ==
[2024-10-08 19:40] LABS: APPEARANCE, URINE HAZY (CLEAR); BACTERIA, URINE AUTO 1+ (NEGATIVE); BILIRUBIN, URINE AUTO NEGATIVE (NEGATIVE); BLOOD, URINE BLOOD 1+ (NEGATIVE); COLOR, URINE YELLOW (YELLOW); GLUCOSE, URINE (UA) AUTO 1+ mg/dL (NEGATIVE); KETONE, URINE AUTO NEGATIVE (NEGATIVE); LEUKOCYTE ESTERASE, URINE AUTO TRACE (NEGATIVE); MUCUS, URINE SMALL (NEGATIVE); NITRITE, URINE AUTO NEGATIVE (NEGATIVE); PROTEIN, URINE AUTO 2+ mg/dL (NEGATIVE); RBC, URINE AUTO 1 /HPF (0-3); SPECIFIC GRAVITY URINE AUTO 1.009 (1.002-1.035); SQUAMOUS EPITHELIAL CELL UR AU 1 /HPF (0-6); UROBILINOGEN, URINE AUTO 0.2 mg/dL (0.0-2.0); WBC, URINE AUTO 2 /HPF (0-3)
== END ==
LOC: SKLAB4 18:03
PROVIDERS: ATTEND Nurse Practitioner Family
DX: N18.9 Chronic kidney disease, unspecified (principal)

== ENCOUNTER → 2024-10-11 | Outpatient (REF) | payer MEDICARE, MEDICAID ==
[2024-10-11 10:10] LABS: ALBUMIN 3.1 G/DL (3.2-5.2); CALCIUM LEVEL 9.4 MG/DL (8.3-10.6); CREATININE FOR GFR 2.08 MG/DL (0.55-1.30); GLOMERULAR FILTRATION RATE 24.5 (>39); PHOSPHORUS LEVEL 4.6 MG/DL (2.4-5.1); POTASSIUM SERUM 4.6 MMOL/L (3.5-5.1); PTH INTACT 259.1 PG/ML (18.5-88.0)
== END ==
LOC: SKLAB4 07:00
PROVIDERS: ATTEND Internal Medicine
DX: N18.4 Chronic kidney disease, stage 4 (severe) (principal)

== ENCOUNTER → 2024-11-08 | Outpatient (REF) | payer MEDICARE, MEDICAID ==
[2024-11-08 11:15] LABS: HEMATOCRIT 31.3 % (36.0-47.0); HEMOGLOBIN 9.6 g/dl (12.0-15.5); MEAN CORPUSCULAR HEMOGLOBIN 26.4 pg (27.0-33.0); MEAN CORPUSCULAR HGB CONC 30.7 g/dl (32.0-36.5); PLATELET COUNT, AUTOMATED 323 10^3/uL (150-450); RED BLOOD COUNT 3.64 10^6/uL (4.00-5.40); WHITE BLOOD COUNT 11.3 10^3/uL (4.0-10.0)
[2024-11-08 11:54] LABS: ALBUMIN 3.4 G/DL (3.2-5.2); CALCIUM LEVEL 9.4 MG/DL (8.3-10.6); CREATININE FOR GFR 2.37 MG/DL (0.55-1.30); PHOSPHORUS LEVEL 4.8 MG/DL (2.4-5.1); POTASSIUM SERUM 4.4 MMOL/L (3.5-5.1)
[2024-11-08 11:55] LABS: PERCENT SATURATION 12.5 % (13.2-45.0)
[2024-11-08 11:56] LABS: PTH INTACT 182.2 PG/ML (18.5-88.0)
== END ==
LOC: SKLAB4 07:00
PROVIDERS: ATTEND Internal Medicine
DX: N18.9 Chronic kidney disease, unspecified (principal)

== ENCOUNTER → 2024-11-09 | Outpatient (REF) ==
[2024-11-10 00:34] LABS: BASO % 0.4 % (0.0-1.0); EOS # 0.2 10^3/uL (0.0-0.5); EOS % 1.9 % (0.0-3.0); HEMATOCRIT 26.9 % (36.0-47.0); HEMOGLOBIN 8.4 g/dl (12.0-15.5); LYMPH # 3.1 10^3/uL (1.5-5.0); LYMPH % 30.8 % (24.0-44.0); MEAN CORPUSCULAR HEMOGLOBIN 26.9 pg (27.0-33.0); MEAN CORPUSCULAR HGB CONC 31.2 g/dl (32.0-36.5); MEAN CORPUSCULAR VOLUME 86.2 fl (80.0-96.0); MONO # 0.6 10^3/uL (0.0-0.8); MONO % 5.5 % (2.0-8.0); NEUTROPHILS # 6.2 10^3/uL (1.5-8.5); NEUTROPHILS % 60.3 % (36.0-66.0); PLATELET COUNT, AUTOMATED 273 10^3/uL (150-450); RED BLOOD COUNT 3.12 10^6/uL (4.00-5.40); WHITE BLOOD COUNT 10.2 10^3/uL (4.0-10.0)
[2024-11-10 00:40] LABS: CALCIUM LEVEL 8.6 MG/DL (8.3-10.6); CREATININE FOR GFR 2.41 MG/DL (0.55-1.30); GLOMERULAR FILTRATION RATE 20.6 (>39); PERCENT SATURATION 7.1 % (13.2-45.0); PTH INTACT 327.4 PG/ML (18.5-88.0)
== END ==
LOC: SKLAB4 14:55
PROVIDERS: ATTEND Nurse Practitioner Family
DX: N18.9 Chronic kidney disease, unspecified (principal); D63.1 Anemia in chronic kidney disease; E21.1 Secondary hyperparathyroidism, not elsewhere classified

== ENCOUNTER → 2024-11-09 | Outpatient (REF) | payer MEDICARE | LOC: SKLAB4 23:25 | PROVIDERS: ATTEND Nurse Practitioner Family | DX: R30.9 Painful micturition, unspecified (principal); D72.829 Elevated white blood cell count, unspecified; D64.9 Anemia, unspecified; Z53.9 Procedure and treatment not carried out, unspecified reason ==

== ENCOUNTER → 2024-11-09 | Outpatient (REF) | payer MEDICARE, MEDICAID ==
[2024-11-09 23:39] LABS: APPEARANCE, URINE CLEAR (CLEAR); BACTERIA, URINE AUTO 1+ (NEGATIVE); BILIRUBIN, URINE AUTO NEGATIVE (NEGATIVE); BLOOD, URINE BLOOD 1+ (NEGATIVE); COLOR, URINE YELLOW (YELLOW); GLUCOSE, URINE (UA) AUTO 1+ mg/dL (NEGATIVE); KETONE, URINE AUTO NEGATIVE (NEGATIVE); LEUKOCYTE ESTERASE, URINE AUTO TRACE (NEGATIVE); NITRITE, URINE AUTO NEGATIVE (NEGATIVE); PROTEIN, URINE AUTO 2+ mg/dL (NEGATIVE); RBC, URINE AUTO 1 /HPF (0-3); SQUAMOUS EPITHELIAL CELL UR AU 1 /HPF (0-6); UROBILINOGEN, URINE AUTO 0.2 mg/dL (0.0-2.0); WBC, URINE AUTO 1 /HPF (0-3)
== END ==
LOC: SKLAB4 13:25
PROVIDERS: ATTEND Internal Medicine
DX: R30.9 Painful micturition, unspecified (principal)

== ENCOUNTER 2024-11-30 10:39 | Outpatient (CLI) | payer MEDICARE, MEDICAID ==
[~2024-11-30] VITALS: Ht 157.5 cm; Wt 91.0 kg
[~2024-11-30 10:39] MED LIST changes: +ALBUTEROL SULFATE 2.5MG/0.5ML INH NEB SOLN INH PRN; +EPINEPHrine INJ 1 MG/ML 1ML AMP IM PRN; +diphenhydrAMINE 50MG/ML VIAL IV PRN; +methylPREDNISolone 125MG 2ML VIAL IV PRN
[2024-11-30 10:45] VITALS: BP 159/83; O2SAT 96
[2024-11-30] MEDS: IRON SUCROSE 400 MG in NS 250 ML OVER 2.5 HRS IV ONE (11:20)
[2024-11-30] MEDS: NS (Normal Saline) 0.9% 1,000 ML IV SCH (11:20)
[2024-11-30 12:30] VITALS: BP 152/90; O2SAT 97
[2024-11-30 14:00] VITALS: BP 135/63; O2SAT 96
== END 2024-11-30 14:00 | disposition home or self-care (01) ==
LOC: M INFU 10:39
PROVIDERS: ATTEND Internal Medicine Nephrology
DX: D50.9 Iron deficiency anemia, unspecified (principal); Z88.2 Allergy status to sulfonamides; Z88.1 Allergy status to other antibiotic agents; Z88.8 Allergy status to other drugs, medicaments and biological substances; Z91.040 Latex allergy status
CPT/HCPCS: 96365; 96366; J1756

== ENCOUNTER → 2024-12-10 | Outpatient (REF) | payer MEDICARE, MEDICAID ==
[~2024-12-10] MED LIST changes: -ALBUTEROL SULFATE 2.5MG/0.5ML INH NEB SOLN INH PRN; -EPINEPHrine INJ 1 MG/ML 1ML AMP IM PRN; -diphenhydrAMINE 50MG/ML VIAL IV PRN; -methylPREDNISolone 125MG 2ML VIAL IV PRN
[2024-12-10 16:24] LABS: APPEARANCE, URINE CLEAR (CLEAR); BACTERIA, URINE AUTO NEGATIVE (NEGATIVE); BILIRUBIN, URINE AUTO NEGATIVE (NEGATIVE); BLOOD, URINE BLOOD NEGATIVE (NEGATIVE); COLOR, URINE STRAW (YELLOW); GLUCOSE, URINE (UA) AUTO NEGATIVE (NEGATIVE); KETONE, URINE AUTO NEGATIVE (NEGATIVE); LEUKOCYTE ESTERASE, URINE AUTO NEGATIVE (NEGATIVE); MUCUS, URINE SMALL (NEGATIVE); NITRITE, URINE AUTO NEGATIVE (NEGATIVE); PROTEIN, URINE AUTO 2+ mg/dL (NEGATIVE); RBC, URINE AUTO 0 /HPF (0-3); SPECIFIC GRAVITY URINE AUTO 1.006 (1.002-1.035); SQUAMOUS EPITHELIAL CELL UR AU 6 /HPF (0-6); UROBILINOGEN, URINE AUTO 0.2 mg/dL (0.0-2.0); WBC, URINE AUTO 1 /HPF (0-3)
== END ==
LOC: SKLAB4 13:43
PROVIDERS: ATTEND Internal Medicine
DX: N18.9 Chronic kidney disease, unspecified (principal)

== ENCOUNTER → 2024-12-11 | Outpatient (REF) | payer MEDICARE, MEDICAID ==
[2024-12-11 10:32] LABS: BASO % 0.3 % (0.0-1.0); EOS # 0.1 10^3/uL (0.0-0.5); EOS % 0.6 % (0.0-3.0); HEMATOCRIT 32.5 % (36.0-47.0); HEMOGLOBIN 10.2 g/dl (12.0-15.5); LYMPH # 4.3 10^3/uL (1.5-5.0); LYMPH % 31.8 % (24.0-44.0); MEAN CORPUSCULAR HEMOGLOBIN 26.7 pg (27.0-33.0); MEAN CORPUSCULAR HGB CONC 31.4 g/dl (32.0-36.5); MEAN CORPUSCULAR VOLUME 85.1 fl (80.0-96.0); MONO # 0.7 10^3/uL (0.0-0.8); NEUTROPHILS # 8.1 10^3/uL (1.5-8.5); NEUTROPHILS % 60.1 % (36.0-66.0); PLATELET COUNT, AUTOMATED 352 10^3/uL (150-450); RED BLOOD COUNT 3.82 10^6/uL (4.00-5.40); WHITE BLOOD COUNT 13.4 10^3/uL (4.0-10.0)
[2024-12-11 10:56] LABS: ALBUMIN 3.2 G/DL (3.2-5.2); CALCIUM LEVEL 9.1 MG/DL (8.3-10.6); CREATININE FOR GFR 1.99 MG/DL (0.55-1.30); GLOMERULAR FILTRATION RATE 25.7 (>39); PERCENT SATURATION 11.1 % (13.2-45.0); PHOSPHORUS LEVEL 3.7 MG/DL (2.4-5.1); POTASSIUM SERUM 3.9 MMOL/L (3.5-5.1)
[2024-12-11 11:39] LABS: HEMOGLOBIN A1c 8.5 % (4.0-6.0)
[2024-12-11 12:35] LABS: PTH INTACT 290.2 PG/ML (18.5-88.0)
== END ==
LOC: SKLAB4 07:00
PROVIDERS: ATTEND Internal Medicine
DX: N18.9 Chronic kidney disease, unspecified (principal); Z79.899 Other long term (current) drug therapy

== ENCOUNTER 2024-12-14 11:07 | Outpatient (CLI) | payer MEDICARE, MEDICAID ==
[~2024-12-14] VITALS: Ht 157.5 cm; Wt 91.0 kg
[~2024-12-14 11:07] MED LIST changes: +ALBUTEROL SULFATE 2.5MG/0.5ML INH NEB SOLN INH PRN; +EPINEPHrine INJ 1 MG/ML 1ML AMP IM PRN; +diphenhydrAMINE 50MG/ML VIAL IV PRN; +methylPREDNISolone 125MG 2ML VIAL IV PRN
[2024-12-14 11:30] VITALS: BP 141/74; O2SAT 95
[2024-12-14] MEDS ORDERED: NS (Normal Saline) 0.9% 1,000 ML IV SCH (11:30)
[2024-12-14] MEDS: NS IV ONE (12:03)
[2024-12-14] MEDS: IRON SUCROSE IV ONE (12:03)
[2024-12-14 13:00] VITALS: BP 139/81; O2SAT 96
[2024-12-14 14:40] VITALS: BP 140/79; O2SAT 97
== END 2024-12-14 14:45 ==
LOC: M INFU 11:07
PROVIDERS: ATTEND Internal Medicine Nephrology
DX: E61.1 Iron deficiency (principal); Z88.2 Allergy status to sulfonamides; Z88.1 Allergy status to other antibiotic agents; Z88.8 Allergy status to other drugs, medicaments and biological substances; Z91.040 Latex allergy status
CPT/HCPCS: 96365; 96366; J1756

== ENCOUNTER → 2025-01-09 | Outpatient (REF) | payer MEDICARE, MEDICAID ==
[~2025-01-09] MED LIST changes: -ALBUTEROL SULFATE 2.5MG/0.5ML INH NEB SOLN INH PRN; -EPINEPHrine INJ 1 MG/ML 1ML AMP IM PRN; -diphenhydrAMINE 50MG/ML VIAL IV PRN; -methylPREDNISolone 125MG 2ML VIAL IV PRN
[2025-01-09 12:57] LABS: BASO % 0.4 % (0.0-1.0); EOS % 0.1 % (0.0-3.0); HEMATOCRIT 35.5 % (36.0-47.0); HEMOGLOBIN 11.3 g/dl (12.0-15.5); LYMPH # 1.5 10^3/uL (1.5-5.0); LYMPH % 19.9 % (24.0-44.0); MEAN CORPUSCULAR HEMOGLOBIN 26.5 pg (27.0-33.0); MEAN CORPUSCULAR HGB CONC 31.8 g/dl (32.0-36.5); MEAN CORPUSCULAR VOLUME 83.3 fl (80.0-96.0); MONO # 0.4 10^3/uL (0.0-0.8); MONO % 4.6 % (2.0-8.0); NEUTROPHILS # 5.7 10^3/uL (1.5-8.5); NEUTROPHILS % 73.1 % (36.0-66.0); PLATELET COUNT, AUTOMATED 274 10^3/uL (150-450); RED BLOOD COUNT 4.26 10^6/uL (4.00-5.40); WHITE BLOOD COUNT 7.8 10^3/uL (4.0-10.0)
[2025-01-09 13:22] LABS: CALCIUM LEVEL 8.8 MG/DL (8.3-10.6); CREATININE FOR GFR 2.35 MG/DL (0.55-1.30); GLOMERULAR FILTRATION RATE 21.2 (>39); POTASSIUM SERUM 3.6 MMOL/L (3.5-5.1)
== END ==
LOC: SKLAB4 11:39
PROVIDERS: ATTEND Internal Medicine
DX: R19.7 Diarrhea, unspecified (principal); N17.9 Acute kidney failure, unspecified

== ENCOUNTER 2025-02-27 10:39 | Outpatient (CLI) | payer MEDICARE, MEDICAID ==
[~2025-02-27] VITALS: Ht 157.5 cm; Wt 88.6 kg
[~2025-02-27 10:39] MED LIST changes: +ALBUTEROL SULFATE 2.5MG/0.5ML INH CONCENTRATE NEB SOLN INH PRN; +EPINEPHrine INJ 1 MG/ML 1ML AMP IM PRN; +diphenhydrAMINE 50MG/ML VIAL IV PRN; +methylPREDNISolone 125MG 2ML VIAL IV PRN
[2025-02-27 11:00] VITALS: BP 146/65; O2SAT 95
[2025-02-27] MEDS: IRON SUCROSE 400 MG in NS 250 ML OVER 2.5 HRS IV ONE (11:42)
[2025-02-27 13:15] VITALS: BP 121/60; O2SAT 96
[2025-02-27 14:20] VITALS: BP 132/63; O2SAT 97
== END 2025-02-27 14:35 | disposition home or self-care (01) ==
LOC: M INFU 10:39
PROVIDERS: ATTEND Internal Medicine Nephrology
DX: D50.9 Iron deficiency anemia, unspecified (principal); Z88.1 Allergy status to other antibiotic agents; Z88.2 Allergy status to sulfonamides; Z88.8 Allergy status to other drugs, medicaments and biological substances; Z91.040 Latex allergy status
CPT/HCPCS: 96365; 96366; J1756

== ENCOUNTER 2025-04-30 08:23 | Outpatient (CLI) | payer MEDICARE, MEDICAID ==
[~2025-04-30] VITALS: Ht 157.5 cm; Wt 86.3 kg
[~2025-04-30 08:23] MED LIST changes: +ALBUTEROL SULFATE 2.5 MG/0.5 ML INH CONCENTRATE NEB SOLN INH PRN; -ALBUTEROL SULFATE 2.5MG/0.5ML INH CONCENTRATE NEB SOLN INH PRN; +NS (Normal Saline) 0.9% 1,000 ML IV SCH; +diphenhydrAMINE 50 MG/ML VIAL IV PRN; -diphenhydrAMINE 50MG/ML VIAL IV PRN; -methylPREDNISolone 125MG 2ML VIAL IV PRN
[2025-04-30 09:14] VITALS: BP 115/60; O2SAT 95
[2025-04-30] MEDS: IRON SUCROSE 400 MG in NS 250 ML OVER 2.5 HRS IV ONE (09:31)
[2025-04-30 13:12] VITALS: BP 122/66; O2SAT 95
== END 2025-04-30 13:13 ==
LOC: M INFU 08:23
PROVIDERS: ATTEND Internal Medicine Nephrology
DX: D50.9 Iron deficiency anemia, unspecified (principal); Z88.1 Allergy status to other antibiotic agents; Z88.2 Allergy status to sulfonamides; Z88.8 Allergy status to other drugs, medicaments and biological substances; Z91.040 Latex allergy status
CPT/HCPCS: 96365; 96366; J1756

== ENCOUNTER → 2025-05-09 | Outpatient (CLI) | payer MEDICARE ==
[~2025-05-09] MED LIST changes: -ACE65ERTAB PO; +ACET-1593 PO; -ALBUTEROL SULFATE 2.5 MG/0.5 ML INH CONCENTRATE NEB SOLN INH PRN; -EPINEPHrine INJ 1 MG/ML 1ML AMP IM PRN; -NS (Normal Saline) 0.9% 1,000 ML IV SCH; -diphenhydrAMINE 50 MG/ML VIAL IV PRN
== END ==
LOC: M RAD 08:42
PROVIDERS: ATTEND Nurse Practitioner
DX: M48.061 Spinal stenosis, lumbar region without neurogenic claudication (principal); M41.86 Other forms of scoliosis, lumbar region; M47.896 Other spondylosis, lumbar region; M46.96 Unspecified inflammatory spondylopathy, lumbar region; Z91.81 History of falling

== ENCOUNTER 2025-05-14 08:18 | Outpatient (CLI) | payer MEDICARE, MEDICAID ==
[2025-04-16] MEDS: IRON SUCROSE 400 MG in NS 250 ML OVER 2.5 HRS IV ONE (10:00)
[~2025-05-14 08:18] MED LIST changes: +ALBUTEROL SULFATE 2.5 MG/0.5 ML INH CONCENTRATE NEB SOLN INH PRN; +EPINEPHrine INJ 1 MG/ML 1ML AMP IM PRN; +NS (Normal Saline) 0.9% 1,000 ML IV SCH; +diphenhydrAMINE 50 MG/ML VIAL IV PRN
[2025-05-14 09:10] VITALS: BP 136/84; O2SAT 96
[2025-05-14] MEDS: IRON SUCROSE 400 MG in NS 250 ML OVER 2.5 HRS IV ONE (09:25)
[2025-05-14 12:15] VITALS: BP 156/76; O2SAT 96
== END 2025-05-14 12:15 ==
LOC: M INFU 08:18
PROVIDERS: ATTEND Internal Medicine Nephrology
DX: D50.9 Iron deficiency anemia, unspecified (principal); Z88.1 Allergy status to other antibiotic agents; Z88.2 Allergy status to sulfonamides; Z88.8 Allergy status to other drugs, medicaments and biological substances; Z91.040 Latex allergy status
CPT/HCPCS: 96365; 96366; J1756

== ENCOUNTER → 2025-05-24 | Outpatient (REF) | payer MEDICARE, MEDICAID ==
[~2025-05-24] MED LIST changes: -ALBUTEROL SULFATE 2.5 MG/0.5 ML INH CONCENTRATE NEB SOLN INH PRN; -EPINEPHrine INJ 1 MG/ML 1ML AMP IM PRN; -NS (Normal Saline) 0.9% 1,000 ML IV SCH; -diphenhydrAMINE 50 MG/ML VIAL IV PRN
[2025-05-24 09:41] LABS: BASO # 0.0 10^3/uL (0.0-0.2); BASO % 0.4 % (0.0-1.0); EOS # 0.2 10^3/uL (0.0-0.5); EOS % 2.2 % (0.0-3.0); LYMPH # 2.4 10^3/uL (1.5-5.0); LYMPH % 24.2 % (24.0-44.0); MONO # 0.5 10^3/uL (0.0-0.8); MONO % 5.2 % (2.0-8.0); NEUTROPHILS # 6.6 10^3/uL (1.5-8.5); NEUTROPHILS % 66.9 % (36.0-66.0); PLATELET COUNT, AUTOMATED 263 10^3/uL (150-450)
[2025-05-24 10:14] LABS: CALCIUM LEVEL 8.5 MG/DL (8.3-10.6); CARBON DIOXIDE LEVEL 32.0 MMOL/L (20-31); CHLORIDE LEVEL 96.0 MMOL/L (98-107); CREATININE FOR GFR 2.87 MG/DL (0.55-1.30); GLOMERULAR FILTRATION RATE 16.1 (>32); IRON (FE) 29.0 UG/DL (50-170); PERCENT SATURATION 8.8 % (13.2-45.0); PHOSPHORUS LEVEL 4.3 MG/DL (2.4-5.1); POTASSIUM SERUM 4.2 MMOL/L (3.5-5.1); PTH INTACT 131.9 PG/ML (18.5-88.0); SODIUM LEVEL 140.0 MMOL/L (136-145)
== END ==
LOC: SKLAB4 07:00
PROVIDERS: ATTEND Internal Medicine
DX: N18.9 Chronic kidney disease, unspecified (principal); D63.1 Anemia in chronic kidney disease

== ENCOUNTER 2025-06-17 08:56 | Outpatient (CLI) | payer MEDICARE, MEDICAID ==
[~2025-06-17 08:56] MED LIST changes: +ALBUTEROL SULFATE 2.5 MG/0.5 ML INH CONCENTRATE NEB SOLN INH PRN; +EPINEPHrine INJ 1 MG/ML 1ML AMP IM PRN; +diphenhydrAMINE 50 MG/ML VIAL IV PRN
[2025-06-17 09:00] VITALS: BP 151/57; O2SAT 95
[2025-06-17] MEDS ORDERED: NS (Normal Saline) 0.9% 1,000 ML IV SCH (09:00)
[2025-06-17] MEDS: IRON SUCROSE 400 MG in NS 250 ML OVER 2.5 HRS IV ONE (10:08)
[2025-06-17 12:51] VITALS: BP 155/77; O2SAT 96
== END 2025-06-17 12:51 ==
LOC: M INFU 08:56
PROVIDERS: ATTEND Internal Medicine Nephrology
DX: D50.9 Iron deficiency anemia, unspecified (principal); Z88.1 Allergy status to other antibiotic agents; Z88.2 Allergy status to sulfonamides; Z88.8 Allergy status to other drugs, medicaments and biological substances; Z91.040 Latex allergy status
CPT/HCPCS: 96365; 96366; J1756

== ENCOUNTER 2025-06-20 08:00 | Emergency (ER) | payer MEDICARE, MEDICAID ==
[~2025-06-20] VITALS: Ht 157.5 cm; Wt 82.7 kg
[~2025-06-20 08:00] MED LIST changes: -ALBUTEROL SULFATE 2.5 MG/0.5 ML INH CONCENTRATE NEB SOLN INH PRN; -EPINEPHrine INJ 1 MG/ML 1ML AMP IM PRN; -diphenhydrAMINE 50 MG/ML VIAL IV PRN
[2025-06-20] MEDS: ACETAMINOPHEN 500 MG TAB PO ONE (12:08)
[2025-06-20 12:13] VITALS: BP 142/64; TEMP 98; O2SAT 96
== END 2025-06-20 12:16 | disposition home or self-care (01) ==
LOC: EDBD 08:00 → M ED 09:42
DX: S80.11XA Contusion of right lower leg, initial encounter (principal); S90.32XA Contusion of left foot, initial encounter; Y92.9 Unspecified place or not applicable; Y93.9 Activity, unspecified; Y99.9 Unspecified external cause status; W07.XXXA Fall from chair, initial encounter; I50.22 Chronic systolic (congestive) heart failure; I71.20 Thoracic aortic aneurysm, without rupture, unspecified; E11.9 Type 2 diabetes mellitus without complications; G47.33 Obstructive sleep apnea (adult) (pediatric); J44.9 Chronic obstructive pulmonary disease, unspecified; I11.0 Hypertensive heart disease with heart failure; E78.5 Hyperlipidemia, unspecified; N18.9 Chronic kidney disease, unspecified; Z88.1 Allergy status to other antibiotic agents; Z88.2 Allergy status to sulfonamides; Z88.8 Allergy status to other drugs, medicaments and biological substances; Z91.040 Latex allergy status; Z79.1 Long term (current) use of non-steroidal anti-inflammatories (NSAID); Z79.4 Long term (current) use of insulin; Z79.899 Other long term (current) drug therapy

== ENCOUNTER 2025-06-24 08:56 | Outpatient (CLI) | payer MEDICARE, MEDICAID ==
[~2025-06-24] VITALS: Ht 157.5 cm; Wt 85.9 kg
[~2025-06-24 08:56] MED LIST changes: +ALBUTEROL SULFATE 2.5 MG/0.5 ML INH CONCENTRATE NEB SOLN INH PRN; +EPINEPHrine INJ 1 MG/ML 1ML AMP IM PRN; +NS (Normal Saline) 0.9% 1,000 ML IV SCH; +diphenhydrAMINE 50 MG/ML VIAL IV PRN
[2025-06-24 09:18] VITALS: BP 152/70; O2SAT 98
[2025-06-24] MEDS: IRON SUCROSE 400 MG in NS 250 ML OVER 2.5 HRS IV ONE (09:43)
[2025-06-24 12:20] VITALS: BP 134/60; O2SAT 99
== END 2025-06-24 12:20 ==
LOC: M INFU 08:56
PROVIDERS: ATTEND Internal Medicine Nephrology
DX: D50.9 Iron deficiency anemia, unspecified (principal); Z88.2 Allergy status to sulfonamides; Z88.1 Allergy status to other antibiotic agents; Z88.8 Allergy status to other drugs, medicaments and biological substances; Z91.040 Latex allergy status
CPT/HCPCS: 96365; 96366; J1756

== ENCOUNTER → 2025-07-02 | Outpatient (REF) | payer MEDICARE, MEDICAID ==
[~2025-07-02] MED LIST changes: -ALBUTEROL SULFATE 2.5 MG/0.5 ML INH CONCENTRATE NEB SOLN INH PRN; -EPINEPHrine INJ 1 MG/ML 1ML AMP IM PRN; -NS (Normal Saline) 0.9% 1,000 ML IV SCH; -diphenhydrAMINE 50 MG/ML VIAL IV PRN
[2025-07-02 11:42] LABS: PLATELET COUNT, AUTOMATED 285 10^3/uL (150-450)
== END ==
LOC: SKLAB4 06-27 07:00
PROVIDERS: ATTEND Nurse Practitioner
DX: K64.9 Unspecified hemorrhoids (principal)

== ENCOUNTER → 2025-07-29 | Outpatient (REF) | payer MEDICARE, MEDICAID ==
[2025-07-29 09:14] LABS: BASO # 0.1 10^3/uL (0.0-0.2); BASO % 0.6 % (0.0-1.0); EOS # 0.3 10^3/uL (0.0-0.5); EOS % 2.7 % (0.0-3.0); LYMPH # 2.8 10^3/uL (1.5-5.0); LYMPH % 26.6 % (24.0-44.0); MONO # 0.6 10^3/uL (0.0-0.8); MONO % 5.9 % (2.0-8.0); NEUTROPHILS # 6.7 10^3/uL (1.5-8.5); NEUTROPHILS % 63.1 % (36.0-66.0); PLATELET COUNT, AUTOMATED 290 10^3/uL (150-450)
[2025-07-29 09:39] LABS: IRON (FE) 62.0 UG/DL (50-170); PERCENT SATURATION 18.0 % (13.2-45.0)
[2025-07-29 09:42] LABS: CALCIUM LEVEL 9.6 MG/DL (8.3-10.6); CARBON DIOXIDE LEVEL 33.0 MMOL/L (20-31); CHLORIDE LEVEL 92.0 MMOL/L (98-107); CREATININE FOR GFR 2.37 MG/DL (0.55-1.30); GLOMERULAR FILTRATION RATE 20.2 (>32); PHOSPHORUS LEVEL 4.1 MG/DL (2.4-5.1); POTASSIUM SERUM 4.1 MMOL/L (3.5-5.1); PTH INTACT 152.1 PG/ML (18.5-88.0); SODIUM LEVEL 137.0 MMOL/L (136-145)
[2025-07-29 09:51] LABS: ESTIMATED AVERAGE GLUCOSE 151.0 MG/DL (60-110)
[2025-07-29 14:47] LABS: APPEARANCE, URINE CLEAR (CLEAR); BACTERIA, URINE AUTO 1+ (NEGATIVE); BILIRUBIN, URINE AUTO NEGATIVE (NEGATIVE); BLOOD, URINE BLOOD 1+ (NEGATIVE); GLUCOSE, URINE (UA) AUTO NEGATIVE (NEGATIVE); KETONE, URINE AUTO NEGATIVE (NEGATIVE); LEUKOCYTE ESTERASE, URINE AUTO NEGATIVE (NEGATIVE); NITRITE, URINE AUTO NEGATIVE (NEGATIVE); PROTEIN, URINE AUTO 2+ mg/dL (NEGATIVE); RBC, URINE AUTO 0 /HPF (0-3); SPECIFIC GRAVITY URINE AUTO 1.009 (1.002-1.035); SQUAMOUS EPITHELIAL CELL UR AU 0 /HPF (0-6); UROBILINOGEN, URINE AUTO 0.2 mg/dL (0.0-2.0); WBC, URINE AUTO 0 /HPF (0-3)
== END ==
LOC: SKLAB4 07:00
PROVIDERS: ATTEND Family Medicine
DX: N18.9 Chronic kidney disease, unspecified (principal); E11.22 Type 2 diabetes mellitus with diabetic chronic kidney disease

== ENCOUNTER → 2025-08-14 | Outpatient (REF) | payer MEDICARE, MEDICAID | LOC: SKLAB4 10:29 | PROVIDERS: ATTEND Family Medicine | DX: R39.9 Unspecified symptoms and signs involving the genitourinary system (principal) ==

== ENCOUNTER → 2025-09-25 | Outpatient (REF) | payer MEDICARE, MEDICAID ==
[~2025-09-25] MED LIST changes: +ACET-1387 PO; -ACET-1593 PO; -FISH10005 PO; +FISH1CAP38 PO
[2025-09-25 09:58] LABS: PLATELET COUNT, AUTOMATED 314 10^3/uL (150-450)
[2025-09-25 10:27] LABS: CALCIUM LEVEL 8.9 MG/DL (8.3-10.6); CARBON DIOXIDE LEVEL 34.0 MMOL/L (20-31); CHLORIDE LEVEL 94.0 MMOL/L (98-107); CREATININE FOR GFR 3.0 MG/DL (0.55-1.30); GLOMERULAR FILTRATION RATE 15.2 (>32); POTASSIUM SERUM 3.8 MMOL/L (3.5-5.1); SODIUM LEVEL 139.0 MMOL/L (136-145)
[2025-09-25 11:00] LABS: ESTIMATED AVERAGE GLUCOSE 137.0 MG/DL (60-110)
== END ==
LOC: SKLAB4 07:00
PROVIDERS: ATTEND Family Medicine
DX: E11.9 Type 2 diabetes mellitus without complications (principal); N18.9 Chronic kidney disease, unspecified; D63.1 Anemia in chronic kidney disease

== ENCOUNTER → 2025-10-09 | Outpatient (REF) | payer MEDICARE, MEDICAID ==
[2025-10-09 08:38] LABS: BASO # 0.1 10^3/uL (0.0-0.2); BASO % 0.6 % (0.0-1.0); EOS # 0.3 10^3/uL (0.0-0.5); EOS % 2.9 % (0.0-3.0); LYMPH # 2.9 10^3/uL (1.5-5.0); LYMPH % 32.8 % (24.0-44.0); MONO # 0.6 10^3/uL (0.0-0.8); MONO % 6.8 % (2.0-8.0); NEUTROPHILS # 4.9 10^3/uL (1.5-8.5); NEUTROPHILS % 55.8 % (36.0-66.0); PLATELET COUNT, AUTOMATED 263 10^3/uL (150-450)
[2025-10-09 08:53] LABS: ESTIMATED AVERAGE GLUCOSE 128.0 MG/DL (60-110)
[2025-10-09 09:20] LABS: ALT/SGPT 23.0 U/L (7.0-40); AST/SGOT 32.0 U/L (<34); CALCIUM LEVEL 8.2 MG/DL (8.3-10.6); CARBON DIOXIDE LEVEL 32.0 MMOL/L (20-31); CHLORIDE LEVEL 95.0 MMOL/L (98-107); CHOLESTEROL LEVEL 163.0 MG/DL (<200); CHOLESTEROL RISK RATIO 5.94 (<5); CREATININE FOR GFR 3.69 MG/DL (0.55-1.30); GLOMERULAR FILTRATION RATE 11.9 (>32); IRON (FE) 38.0 UG/DL (50-170); LDL CHOLESTEROL 64.6 MG/DL (<100); MAGNESIUM LEVEL 1.6 MG/DL (1.8-2.4); NON-HDL-C 135.6 MG/DL; PERCENT SATURATION 11.9 % (13.2-45.0); PHOSPHORUS LEVEL 4.9 MG/DL (2.4-5.1); POTASSIUM SERUM 3.9 MMOL/L (3.5-5.1); PTH INTACT 69.5 PG/ML (18.5-88.0); SODIUM LEVEL 137.0 MMOL/L (136-145); TRIGLYCERIDES LEVEL 355.0 MG/DL (<150)
== END ==
LOC: SKLAB4 07:00
PROVIDERS: ATTEND Family Medicine
DX: N18.9 Chronic kidney disease, unspecified (principal); D63.1 Anemia in chronic kidney disease; D50.9 Iron deficiency anemia, unspecified; E03.9 Hypothyroidism, unspecified; Z79.899 Other long term (current) drug therapy